=== PATIENT | male | born 1995 | race Caucasian/White ===

== ENCOUNTER 2022-05-28 11:23 | Emergency (ER) | payer OTHER, SELFPAY ==
[2022-05-28 11:24] VITALS: BP 132/75; PULSE 68; RESP 16; TEMP 36.6; O2SAT 99; BMI 21.5
--- NOTE | 2022-05-28 11:35 | EX.ED.GENINJ ---
HPI <VLADISLAV Howard Last Filed: 05/28/22 13:35> History of Present Illness Chief Complaint: Laceration Narrative Narrative: 27-year-old male presents with laceration to his left palmar hand. This morning he was feeling a catfish with his stainless steel knife and excellently cut himself. He cleansed it with peroxide and put Steri-Strips on but presents to see if it needs sutures. No weakness numbness or tingling. Tetanus up-to-date. PFSH <VLADSILAV Howard Last Filed: 05/28/22 13:35> [facility] Home Medications ciprofloxacin HCl 500 mg tablet (Cipro) 500 mg PO BID 5 days #10 tabs 05/28/22 [Rx Last Taken Unknown] Allergy/AdvReac Type Severity Reaction Status Date / Time No Known Allergies Allergy Verified 05/28/22 11:24 Social History Smoking Status: Never smoker ROS <VLADISLAV Howard Last Filed: 05/28/22 13:35> ROS ED ROS Narrative Constitutional: Negative for fever, chills, malaise. Eyes: Negative for visual change. ENT: Negative for sore throat, rhinorrhea. CVS: Negative for palpitations, chest pain. Respiratory: Negative for shortness of breath. GI: Negative for abdominal pain, nausea, vomiting. : Negative for dysuria, hematuria or frequency. Neuro: Negative for headache, motor/sensory dysfunction. Skin: Positive for laceration. Musc: Negative for joint pain, swelling, trauma. Heme: Negative for easy bruising, bleeding, lymphadenopathy. EXAM <VLADISLAV Howard Last Filed: 05/28/22 13:35> Physical Exam Narrative Exam Narrative: CONST: Patient sitting in no acute distress. EYES: Normal inspection. NECK: Normal inspection. RESP: No respiratory distress, CTAB. CVS: Regular rate and rhythm, no murmur, no gallop. SKIN: 3 cm linear laceration on the left palmar hypothenar eminence, no joint involvement. EXTREMITIES: Normal appearance, full ROM of left wrist hand and digits, 2+ radial pulse and brisk cap refill in all digits. NEURO: Oriented x4. PSYCH: Normal affect. Const Vital Signs: 05/28/22 11:24 Temperature 97.8 F Temperature Source Temporal Pulse Rate 68 Respiratory Rate 16 Blood Pressure 132/75 H Blood Pressure Mean 94 Pulse Ox 99 Oxygen Delivery Method Room Air <Dr. Hema Kahn MD - Last Filed: 05/28/22 12:41> Physical Exam Const Vital Signs: 05/28/22 11:24 Temperature 97.8 F Temperature Source Temporal Pulse Rate 68 Respiratory Rate 16 Blood Pressure 132/75 H Blood Pressure Mean 94 Pulse Ox 99 Oxygen Delivery Method Room Air MDM <VLADISLAV Howard - Last Filed: 05/28/22 13:35> [facility] Narrative Medical decision making narrative: Patient has a 3 cm linear laceration on his left hand over the lateral palm. Its to level of the subcutaneous fat with no tendon injury. Neurovascularly intact. Tetanus up-to-date. 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 Under sterile conditions I closed it with 5 simple erupted sutures of 5-0 Ethilon. Discussed wound care and that sutures need removed in 7 to 10 days. There are no signs of infection now with since it occurred while fishing [place] and he was guarding for she will be placed on 5 days of Cipro and was counseled to return for signs of infection. He was discharged in stable condition. 1. Left hand laceration, simple suture repair <Dr. Hema Kahn MD - Last Filed: 05/28/22 12:41> [facility] [place] Treatment and Re-Evaluation Narrative: I have personally performed a face to face assessment of the patient and have reviewed the RENEE Note. I performed a substantive portion of the visit including all aspects of the following. My bains findings include: History is consistent with a laceration to the left nondominant hyperthenar eminence. This happened about 7 or so hours ago. He was cleaning the fish at the time from freshwater source. He did clean the area afterwards. No numbness tingling or loss of function. Exam is consistent with approximately 3 cm laceration to the proximal aspect of the hypothenar eminence. No active bleeding. No numbness tingling or loss of function distally. Medical Decison Making aggressive cleansing and suturing will be done. Because we are a handful of hours since injury, and the area was exposed to fresh water fish we will provide short course of antibiotics. Discharge Plan Triage Chief Complaint: Laceration ED Midlevel Provider: Kerrie Hinojosa ED Provider: Hema Kahn Dx/Rx/DC Orders Clinical Impression: Laceration of hand, left Instructions: ED Laceration, Hand: All Closures Prescriptions: New ciprofloxacin HCl [Cipro] 500 mg tablet 500 mg PO BID 5 Days Qty: 10 0RF Primary Care Provider: Venus Palomo Referrals: NOT,DEFINED [NON-STAFF] - Activity Restrictions/Additional Instructions: You can shower as normal and gently clean with soap and water. Keep it clean. Since it was exposed to law water and fish we are putting you on 5 days of antibiotics. Stitches need removed in 7 to 10 days. If you develop any redness swelling or signs of infection come back to the ER. Disposition Disposition: Home, Self Care
[2022-05-28] MEDS: Lidocaine 1% (20 ml mdv) 20 ML Vial INFILT (13:28)
== END 2022-05-28 13:34 | disposition home or self-care (01) ==
LOC: ED 12:42
PROVIDERS: Emergency Provider Emergency Medicine; PCP Internal Medicine; Visit Provider Emergency Medicine
DX: S61.412A Laceration without foreign body of left hand, initial encounter (principal); W26.0XXA Contact with knife, initial encounter; Y93.G1 Activity, food preparation and clean up; Y99.9 Unspecified external cause status; Y92.9 Unspecified place or not applicable
CPT/HCPCS: 12002; 99284